=== PATIENT | male | born 1945 | race Caucasian/White ===

== ENCOUNTER 2019-04-07 09:41 | Observation (INO) | payer MEDICARE ==
[~2019-04-07] VITALS: Ht 193 cm; Wt 150.8 kg
[2019-04-07] MEDS ORDERED: LACTATED RINGERS 1,000 ML IV SCH (10:40)
[2019-04-07] MEDS ORDERED: ZOLP10TA5 PO (10:48)
[2019-04-07] MEDS ORDERED: ATOR-2 PO (10:48)
[2019-04-07] MEDS ORDERED: POTA20TA14 PO (10:48)
[2019-04-07] MEDS ORDERED: DIAZ5TAB4 PO (10:48)
[2019-04-07] MEDS ORDERED: ASCO10004 PO (10:48)
[2019-04-07] MEDS ORDERED: OXYC-302 PO (10:48)
[2019-04-07] MEDS ORDERED: ASPI-496 PO (10:48)
[2019-04-07] MEDS ORDERED: IBUP-1223 PO (10:48)
[2019-04-07] MEDS ORDERED: VALA1000 PO (10:48)
[2019-04-07] MEDS ORDERED: [UNRECOGNIZED DRUG - OTHER] PO (10:48)
[2019-04-07] MEDS ORDERED: TORS20TA2 PO (10:48)
[2019-04-07] MEDS ORDERED: HYDR-3240 PO (10:48)
[2019-04-07] MEDS ORDERED: DIVA500T17 PO (10:48)
[2019-04-07 11:19] VITALS: BP 114/76
[2019-04-07] MEDS ORDERED: CEFAZOLIN 1,000 MG ONE (12:41)
[2019-04-07] MEDS ORDERED: ROCURONIUM 10MG/ML,5ML ONE (12:41)
[2019-04-07] MEDS ORDERED: DEXAMETHASONE 4 MG/ML, 1ML ONE (12:41)
[2019-04-07] MEDS ORDERED: GLYCOPYRROLATE 0.2MG/1ML, 5ML ONE (12:41)
[2019-04-07] MEDS ORDERED: SUCCINYLCHOLINE 20 MG/ML, 10ML ONE (12:41)
[2019-04-07] MEDS ORDERED: FENTANYL PF 250 MCG/5ML ONE (12:41)
[2019-04-07] MEDS ORDERED: PROPOFOL 10 MG/ML, 20ML ONE (12:41)
[2019-04-07] MEDS ORDERED: ONDANSETRON 2MG/ML, 2ML ONE (12:41)
[2019-04-07] MEDS ORDERED: NEOSTIGMINE 1 MG/ML, 10ML ONE (12:41)
[2019-04-07] MEDS ORDERED: BUPIVACAINE/PF 0.25% ONE (13:06)
[2019-04-07] MEDS ORDERED: EPINEPHRINE 1 MG/ML, 1ML ONE (13:07)
[2019-04-07] MEDS ORDERED: methylPREDNISolone SOD SUCC 125 MG/2 ML ONE (13:07)
[2019-04-07] MEDS ORDERED: BACITRACIN 50,000 UNIT ONE (13:07)
[2019-04-07] MEDS ORDERED: THROMBIN (RECOMBINANT) 5,000 UNIT VIAL TP ONE (13:07)
[2019-04-07] MEDS ORDERED: FENTANYL PF 100 MCG/2ML ONE ×2 (13:07→15:11)
[2019-04-07] MEDS ORDERED: MIDAZOLAM 1 MG/ML, 2ML ONE (13:12)
[2019-04-07] MEDS ORDERED: ALBUTEROL SULFATE 2.5 MG/3 ML NPPB PRN (15:00)
[2019-04-07] MEDS ORDERED: hydrALAzine 20 MG/ML, 1ML IV PRN (15:00)
[2019-04-07] MEDS ORDERED: KETOROLAC 30 MG/1 ML IV PRN (15:00)
[2019-04-07] MEDS ORDERED: LABETALOL 5MG/ML, 20ML IV PRN (15:00)
[2019-04-07] MEDS ORDERED: MEPERIDINE/PF 25MG/0.5ML IVPush PRN (15:00)
[2019-04-07] MEDS ORDERED: HYDROmorphone 2 MG/ML, 1ML IVPush PRN ×2 (15:00→17:30)
[2019-04-07] MEDS ORDERED: OXYcodone 5 MG/5 ML ORAL.SOL UDC PO PRN (15:00)
[2019-04-07] MEDS ORDERED: ACETAMINOPHEN 325 MG TABLET PO PRN (15:00)
[2019-04-07] MEDS ORDERED: PROMETHAZINE 25 MG/ML, 1ML IV PRN (15:00)
[2019-04-07] MEDS ORDERED: HYDR-36 PO (15:11)
[2019-04-07] MEDS ORDERED: TIZA4TAB2 PO (15:11)
[2019-04-07] MEDS: FENTANYL PF 100 MCG/2ML IV PRN ×2 (15:15→15:20)
[2019-04-07] MEDS ORDERED: OXYcodone 5 MG/5 ML ORAL.SOL UDC ONE (15:18)
[2019-04-07] MEDS ORDERED: ACETAMINOPHEN 325 MG TABLET ONE (15:18)
[2019-04-07] MEDS ORDERED: DIAZEPAM 5 MG/ML, 2ML ONE (15:25)
[2019-04-07] MEDS: DIAZEPAM 5 MG/ML, 2ML IVPush PRN ×2 (15:26→15:58)
[2019-04-07] MEDS ORDERED: hydrALAzine 20 MG/ML, 1ML ONE (15:32)
[2019-04-07] MEDS ORDERED: HYDROmorphone 1 MG/ML, 1ML VIAL ONE (16:05)
[2019-04-07] MEDS ORDERED: DIPHENHYDRAMINE 50 MG/ML, 1ML IVPush PRN (17:30)
[2019-04-07] MEDS ORDERED: ONDANSETRON 2MG/ML, 2ML IVPush PRN (17:30)
[2019-04-07] MEDS ORDERED: TIZANIDINE 4MG TABLET PO PRN (17:30)
[2019-04-07] MEDS ORDERED: PHARMACY MAY ADJ FOR RENAL FX MC PRN (17:30)
[2019-04-07] MEDS ORDERED: BISACODYL 10 MG SUPP PR PRN (17:30)
[2019-04-07] MEDS ORDERED: NS + 20MEQ KCL 1,000 ML IV SCH (17:30)
[2019-04-07] MEDS ORDERED: PROMETHAZINE 25 MG/ML, 1ML IM PRN (17:30)
[2019-04-07] MEDS ORDERED: MAGNESIUM HYDROXIDE 8%, 30ML UDC PO PRN (17:30)
[2019-04-07 18:00] VITALS: BP 152/73
[2019-04-07] MEDS: CEFAZOLIN PMX 1GM/50ML 50 ML IVPB SCH (18:46)
[2019-04-07] MEDS: SODIUM CHLORIDE 0.9% 1,000 ML IV SCH (18:46)
[2019-04-07] MEDS: HYDROcodone/APAP 10/325 MG TABLET PO PRN ×2 (19:10→23:35)
[2019-04-07] MEDS: DIVALPROEX 500 MG TAB.ER.24H PO SCH (20:30)
[2019-04-07] MEDS: SODIUM CHLORIDE FLUSH 10ML SYR IVF SCH (20:31)
[2019-04-07] MEDS ORDERED: ATORVASTATIN 80 MG TABLET PO SCH (21:00)
[2019-04-07] MEDS ORDERED: DIAZEPAM 5 MG TABLET PO SCH (21:00)
[2019-04-07] MEDS ORDERED: ZOLPIDEM 10MG TABLET PO SCH (21:00)
[2019-04-08 00:03] VITALS: BP 139/74
[2019-04-08] MEDS: CEFAZOLIN PMX 1GM/50ML 50 ML IVPB SCH (02:35)
[2019-04-08 03:03] VITALS: BP 103/58
[2019-04-08] MEDS: SODIUM CHLORIDE 0.9% 1,000 ML IV SCH ×2 (04:30→13:48)
[2019-04-08 07:00] VITALS: BP 124/61
[2019-04-08] MEDS: DIVALPROEX 500 MG TAB.ER.24H PO SCH (07:51)
[2019-04-08] MEDS: HYDROcodone/APAP 10/325 MG TABLET PO PRN ×2 (07:51→11:58)
[2019-04-08] MEDS: SODIUM CHLORIDE FLUSH 10ML SYR IVF SCH (07:52)
[2019-04-08] MEDS ORDERED: POTASSIUM CHLORIDE 20 MEQ TAB.ER.PRT PO SCH (09:00)
[2019-04-08] MEDS ORDERED: SENNA/DOCUSATE TABLET PO SCH (09:00)
[2019-04-08] MEDS ORDERED: TORSEMIDE 20 MG TABLET PO SCH (09:00)
[2019-04-08] MEDS ORDERED: HYDR-36 PO (09:50)
[2019-04-08] MEDS ORDERED: TIZA4CAP PO (09:51)
[2019-04-08 12:15] VITALS: BP 134/66
[2019-04-08 13:00] VITALS: BP 146/77
== END 2019-04-08 14:40 | disposition home or self-care (01) ==
LOC: OUT 09:41 → ORIP 17:25 → 4NE 18:01 → DCLOUNGE 04-08 14:21
PROVIDERS: ADMIT Neurological Surgery; ATTEND Neurological Surgery
DX: M51.17 Intervertebral disc disorders with radiculopathy, lumbosacral region (principal); M54.5 Low back pain; G89.29 Other chronic pain; E78.5 Hyperlipidemia, unspecified; Z79.82 Long term (current) use of aspirin; E78.00 Pure hypercholesterolemia, unspecified; G40.909 Epilepsy, unspecified, not intractable, without status epilepticus; F32.9 Major depressive disorder, single episode, unspecified; M19.90 Unspecified osteoarthritis, unspecified site; Z79.899 Other long term (current) drug therapy
CPT/HCPCS: 63030; 72100; 76000; 96365; 96366; 97161; G0378; J0171; J0330; J0360; J0690; J1100; J1170; J2250; J2405; J2704; J2930; J3010; J3360; J3490; J7030; J7120; J2710